=== PATIENT | female | born 1965 | race Caucasian/White ===

== ENCOUNTER 2022-04-27 15:22 | Outpatient (CLI) | payer OTHER, SELFPAY ==
--- NOTE | 2022-04-27 15:30 | ECG_ITS ---
Measurements Intervals [place] Rate: 84 P: 63 CO: 158 QRS: 27 QRSD: 81 T: 47 QT: 352 QTc: 417 Interpretive Statements SINUS RHYTHM LOW QRS VOLTAGE IN PRECORDIAL LEADS BASELINE ARTIFACT- I, II, III, AVR, AVL, AVF BORDERLINE ECG NO PREVIOUS ECG AVAILABLE FOR COMPARISON Electronically Signed On 04-27-2022 15:44:11 [employer] by Dario Mendoza D.O.
[2022-04-27 16:47] LABS: INR 2.2; Partial Thromboplastin Time 35.6 SECONDS (22.3-36.8); Prothrombin Time 23.5 Seconds (11.1-14.7)
== END 2022-04-27 15:23 | disposition home or self-care (01) ==
LOC: ANHSURGERY 15:28
PROVIDERS: Anesthesiology; Visit Provider Urology
DX: Z01.812 Encounter for preprocedural laboratory examination (principal); Z01.810 Encounter for preprocedural cardiovascular examination; N39.3 Stress incontinence (female) (male); Z79.01 Long term (current) use of anticoagulants; Z87.891 Personal history of nicotine dependence
CPT/HCPCS: 36415; 85610; 85730; 87086; 87088; 93005

== ENCOUNTER 2022-05-07 00:54 | Day surgery (SDC) | payer OTHER, SELFPAY ==
[2022-04-26 11:08] VITALS: BMI 44.9
--- NOTE | 2022-04-26 11:13 | PC.NURSE ---
Report to the Outpatient Waiting Room, entrance under the green pavilion located off [facility], at time 6:15 on date 05/07/22. Planned Procedure Time: 8:15. Time changes happen often and if your time is changed the preop area will call you the afternoon before. - You and your visitor will be asked to self-screen and do not enter if you have any COVID symptoms. - Only one visitor is requested with a max of two and NO children visitors are allowed at this time. - The patient visitor may be requested to leave or wait in car when not with patient due to distancing restrictions. - A mask is optional within the hospital at this time. Patients may have clear liquids (water, carbonated beverages, clear teas, apple juice) until 3 hours prior to surgery with a maximum of 20 ounces. - No food from midnight until time of surgery Take the following medications with a SIP of water the morning of surgery: EFFEXOR DO NOT STOP ANY OF YOUR OTHER PRESCRIPTION MEDICATIONS PRIOR TO SURGERY?EXCEPT THE FOLLOWING Medications to discontinue per physician: COUMADIN Date to take last dose: PER DR. FRAIRE Please no make-up, nail khmer, hairspray, perfume, deodorant, or body powder the day of surgery. No jewelry (including any body piercings) or valuables the day of surgery, leave them at home. Please take a shower or bath the night before, or the morning of, surgery with an antibacterial soap. Wear comfortable, loose fitting clothing. - Jewelry must be removed prior to entering the operating room. Rings and piercings that are not removed may be cut off. - The hospital will not accept responsibility for valuables. - Please leave all valuables, including medications, at home the day of surgery. If you are going home after surgery, a licensed regional driver must drive you home. - NO public transportation without another adult if you receive anesthesia. - We recommend that an adult stay with you for 24 hours following discharge. - We also recommend that you do not drive, make important decision, drink alcoholic beverages, or take any drugs that were not prescribed by your health care provider for at least 24 hours after your discharge time. Follow any additional instructions given to you from your surgeon. If you or anyone in your household have experienced Covid symptoms in the past week, please notify your surgeon or the nurse liaison at the phone number below for possible testing. Telephone instructions given to PT - FERNANDO HERNANDES and asked if any additional questions and then verbalized understanding. Patient advised to call surgeon office or pre surgery nurse liaison [phone] if any additional questions.
--- NOTE | 2022-05-06 09:34 | PM.IMHP ---
H&P: HPI History of Present Illness Date/Time: 05/06/22 09:34 Chief Complaint: stress incontinence Narrative: 57-year-old with symptomatic stress incontinence who desires treatment. Will pursue a urethral sling. She has overactive bladder treated with anticholinergics. She has an asymptomatic rectocele which does not require intervention Review of Systems Review of Systems: All systems reviewed & are unremarkable except as noted in HPI and below PMFSH Social History Social History Smoking packs per day: 1 Smoking cigarettes per day: 20.0 Years smoked: 20 Smoking pack-years: 20.00 Smoking status: Former smoker Tobacco type: cigarettes Smoking end date: 03/28/07 Alcohol intake: never Substance use: never Substance use type: does not use Living arrangements: with family Spiritual care concerns: No Meds Home Medications and Allergies Home Medications Medication Instructions Recorded Confirmed Type lisinopril 2.5 mg tablet 2.5 mg PO DAILY 04/26/22 04/26/22 History loratadine 10 mg tablet (Claritin) 10 mg PO DAILY 04/26/22 04/26/22 History venlafaxine 25 mg tablet 25 mg PO DAILY 04/26/22 04/26/22 History warfarin 3 mg tablet 3 mg PO DAILY 04/26/22 04/26/22 History Allergies Allergy/AdvReac Type Severity Reaction Status Date / Time No Known Allergies Allergy Verified 04/26/22 11:04 Exam Narrative: urethral hypermobility noted rectocele to the introitus Assessment and Plan Assessment and plan (1) DARBY (stress urinary incontinence, female): Code(s): N39.3 - Stress incontinence (female) (male) Status: Acute Assessment and Plan: urethral sling. Understands risks of bleeding, infection, lack of efficacy, recurrent or persistent incontinence, need for ancillary procedures, urinary retention or mesh exposure. She agrees to proceed.
--- NOTE | 2022-05-07 06:46 | WPDANESEPPF ---
Anes - Initial Pre Proc Eval Procedure: Operation Date: 05/07/22 08:15 Proposed Procedures p Urethral Sling - Owen Barrett MD Date/Time: 05/07/22 06:46 Surgeon: Owen Barrett MD Pre Op Diagnosis: stress incont Patient Data Age: 57 Gender: F Height: 1.52 m Weight: 104.33 kg Allergies Allergy/AdvReac Type Severity Reaction Status Date / Time No Known Allergies Allergy Verified 04/26/22 11:04 Home Medications Medication Instructions Recorded Confirmed Type lisinopril 2.5 mg tablet 2.5 mg PO DAILY 04/26/22 04/26/22 History loratadine 10 mg tablet (Claritin) 10 mg PO DAILY 04/26/22 04/26/22 History venlafaxine 25 mg tablet 25 mg PO DAILY 04/26/22 04/26/22 History warfarin 3 mg tablet 3 mg PO DAILY 04/26/22 04/26/22 History Laboratory Tests 05/07/22 06:36 PT Pending INR Pending APTT Pending Patient hx anesthesia problems: none Family hx anesthesia problems: none Results Review: All pre-operative results and documents have been reviewed as part of the pre-operative evaluation. [facility], [facility] Past Medical History Medical History (Updated 05/07/22 @ 06:46 by Patricio Anaya MD) History of CVA (cerebrovascular accident) HTN (hypertension) Morbid obesity Surgical History Surgical History (Updated 05/07/22 @ 06:46 by Patricio Anaya MD) H/O exploratory laparotomy Social History Social History Smoking packs per day: 1 Smoking cigarettes per day: 20.0 Years smoked: 20 Smoking pack-years: 20.00 Smoking status: Former smoker Tobacco type: cigarettes Smoking end date: 03/28/07 Alcohol intake: never Substance use: never Substance use type: does not use Living arrangements: with family Spiritual care concerns: No Anes - Eval Final PreProcedure Day of Procedure 05/07/22 06:46 Patient weight: morbidly obese Heart: regular rate and rhythm Lungs: clear to auscultation Airway: Mallampati scale class II Neurological: alert and oriented Last oral intake: >/= 8 hours ASA classification: III Emergent: no Anesthetic plan: proceed Anesthesia type and monitoring: general GIVS and standard monitoring Results Review: All pre-operative results and documents have been reviewed as part of the pre-operative evaluation. Informed Consent: The patient's anesthetic plan and its attendant risks and benefits were discussed with the patient/family/POA. Questions were solicited and answers provided to the satisfaction of the patient/family/POA.
[2022-05-07 06:56] LABS: INR 1.2; Prothrombin Time 14.8 Seconds (11.1-14.7)
[2022-05-07 06:57] LABS: Partial Thromboplastin Time 29.7 SECONDS (22.3-36.8)
[2022-05-07 07:08] VITALS: BP 123/62; PULSE 73; RESP 14; TEMP 36.1; O2SAT 97
[2022-05-07] MEDS: LACTATED RINGERS 1,000 ML 30 ML IV CONT (07:11)
--- NOTE | 2022-05-07 07:12 | WPDHPUPDATE1 ---
History and Physical Update Update Date/Time: 05/07/22 07:12 History and Physical has been reviewed, including an updated exam of the patient. There are NO changes in the patient's condition. Risks, benefits, and alternatives have been discussed and questions answered. Patient agrees to proceed with procedure.
[2022-05-07] MEDS: ceFAZolin 2 GM/D5W 50 ML 2 GM/50 ML BAG IVPB (07:25)
[2022-05-07] MEDS: BUPIVACAINE/EPINEPHRINE 0.5% 10 ML VIAL 30 ML INFILTRATE (07:36)
[2022-05-07 08:00] VITALS: BP 123/79; PULSE 77; RESP 20; O2SAT 99
--- NOTE | 2022-05-07 08:01 | W.PM.PROC2 ---
Procedure Note - Detailed Date of Procedure 05/07/22 Pre-op Diagnosis stress incontinence Post-op Diagnosis Same Procedure Performed mid urethral sling cystoscopy Surgeon Owen Barrett MD Anesthesia General Indications This is a female with confirmed stress urinary incontinence. She desires surgical correction. She understands the risks of bleeding, infection, injury to the urinary tract, vaginal mesh extrusion, urinary tract mesh erosion, obstructive voiding requiring a secondary procedure, hip and leg pain, dyspareunia, inability to improve overactive bladder symptoms. She agrees to proceed. Description of Procedure She was correctly identified. Informed consent obtained. She was brought the operating room. She was given appropriate anesthesia. She was given appropriate perioperative antibiotics. A time-out performed. I marked out the site of the inner thigh incisions. I anesthetized the skin and made those incisions. I anesthetized the anterior vaginal wall over the mid urethra. I made a 1 cm incision. I dissected out laterally taking great care not to injure the refilled vaginal wall. I passed the helical trocars. First on the left. Then on the right. I did this from the thigh incision towards the vaginal incision. The sling was connected to the trocars and brought out through the thigh incision. I tensioned the sling appropriately. I cut and the plastic sheaths. I then closed the incision with 2 0 Vicryl. On cystoscopy there is no tumors or surgical artifact. There was no surgical artifact in the urethra. I cut the excess sling material. Close incisions with glue. She was awakened and transferred to the PACU in stable condition. Implants Urethral sling Estimated Blood Loss 20 Drains No Packing No Pathology None sent Complications No immediate complications Condition Stable Disposition PACU
[2022-05-07] MEDS: fentaNYL CITRATE INJ (*CRX) 100 MCG/2 ML VIAL 25 MCG IV PUSH ×2 (08:08→08:24)
[2022-05-07 08:15] VITALS: BP 109/77; PULSE 70; RESP 15; O2SAT 96
[2022-05-07 08:45] VITALS: BP 119/71; PULSE 77; RESP 16
== END 2022-05-07 09:30 | disposition home or self-care (01) ==
PROVIDERS: Anesthesiology; Visit Provider Urology
PROC: (CPT 57288; principal; 2022-05-07 08:15)
DX: N39.3 Stress incontinence (female) (male) (principal); N32.81 Overactive bladder; I10 Essential (primary) hypertension; Z86.73 Personal history of transient ischemic attack (TIA), and cerebral infarction without residual deficits; E66.01 Morbid (severe) obesity due to excess calories; Z68.42 Body mass index [BMI] 45.0-49.9, adult; Z87.891 Personal history of nicotine dependence; Z79.01 Long term (current) use of anticoagulants
CPT/HCPCS: 57288; 36415; 85610; 85730; 87086; 87088; 93005; C1771; J0690; J1100; J2250; J2405; J2704; J3010; J7030; J7120

== ENCOUNTER 2022-08-02 00:33 | Day surgery (SDC) | payer OTHER, SELFPAY ==
[2022-07-26 15:19] VITALS: BMI 47.6
--- NOTE | 2022-07-26 15:20 | PC.NURSE ---
Report to the Outpatient Waiting Room, entrance under the green pavilion located off [facility], at time 6:30 on date 08/02/22. Planned Procedure Time: 8:30. Time changes happen often and if your time is changed the preop area will call you the afternoon before. - You and your visitor will be asked to self-screen and do not enter if you have any COVID symptoms. - A mask is optional within the hospital at this time. Patients may have clear liquids (water, carbonated beverages, clear teas, apple juice) until 3 hours prior to surgery with a maximum of 20 ounces. - No food from midnight until time of surgery Take the following medications with a SIP of water the morning of surgery: VENLAFAXINE DO NOT STOP ANY OF YOUR OTHER PRESCRIPTION MEDICATIONS PRIOR TO SURGERY ?EXCEPT THE FOLLOWING Medications to discontinue per physician: WARFARIN Date to take last dose: 07/27/22 (PER DR. FRAIRE-PER PT) Please no make-up, nail latvian, hairspray, perfume, deodorant, or body powder the day of surgery. No jewelry (including any body piercings) or valuables the day of surgery, leave them at home. Please take a shower or bath the night before, or the morning of, surgery with an antibacterial soap. Wear comfortable, loose fitting clothing. - Jewelry must be removed prior to entering the operating room. Rings and piercings that are not removed may be cut off. - The hospital will not accept responsibility for valuables. - Please leave all valuables, including medications, at home the day of surgery. If you are going home after surgery, a licensed patrol driver must drive you home. - NO public transportation without another adult if you receive anesthesia. - We recommend that an adult stay with you for 24 hours following discharge. - We also recommend that you do not drive, make important decision, drink alcoholic beverages, or take any drugs that were not prescribed by your health care provider for at least 24 hours after your discharge time. Follow any additional instructions given to you from your surgeon. If you or anyone in your household have experienced Covid symptoms in the past week, please notify your surgeon or the nurse liaison at the phone number below for possible testing. Telephone instructions given to PT - FERNANDO HERNANDES and asked if any additional questions and then verbalized understanding. Patient advised to call surgeon office or pre surgery nurse liaison [phone] if any additional questions.
--- NOTE | 2022-07-31 16:38 | PM.IMHP ---
H&P: HPI History of Present Illness Date/Time: 07/31/22 16:38 Chief Complaint: exposed sling Narrative: history of exposed sling, notes bleeding. Review of Systems Review of Systems: All systems reviewed & are unremarkable except as noted in HPI and below PMFSH Past Medical History Medical History History of CVA (cerebrovascular accident) HTN (hypertension) Morbid obesity Surgical History Surgical History H/O exploratory laparotomy Social History Social History Smoking packs per day: 1 Smoking cigarettes per day: 20.0 Years smoked: 20 Smoking pack-years: 20.00 Smoking status: Former smoker Tobacco type: cigarettes Smoking end date: 03/28/07 Alcohol intake: never Substance use: never Substance use type: does not use Living arrangements: with family Gender identity (if verbalized by the patient): Female Sexual Orientation (if Verbalized by the Patient): Straight or Heterosexual Spiritual care concerns: No Meds Home Medications and Allergies Home Medications Medication Instructions Recorded Confirmed Type lisinopril 2.5 mg tablet 2.5 mg PO DAILY 04/26/22 07/26/22 History venlafaxine 25 mg tablet 25 mg PO DAILY 04/26/22 07/26/22 History warfarin 3 mg tablet 3 mg PO DAILY 04/26/22 07/26/22 History Allergies Allergy/AdvReac Type Severity Reaction Status Date / Time No Known Allergies Allergy Verified 07/26/22 15:18 Exam Narrative: Obese no acute distress area of exposure present Assessment and Plan Assessment and plan (1) Exposure of vaginal mesh through vaginal wall: Code(s): T83.721A - Exposure of implanted vaginal mesh into vagina, initial encounter Status: Acute (2) Intrinsic sphincter deficiency (ISD): Code(s): N36.42 - Intrinsic sphincter deficiency (ISD) Status: Acute Plan will excise mesh exposure. Concomitant bulking agent. Understands the risks of bleeding, infection, inability to resolve the issue, recurrent or persistent incontinence, obstructive voiding. Agrees to proceed
[2022-08-02] VITALS (7 sets, daily range): BP systolic 106–132; BP diastolic 58–77; PULSE 69–76; RESP 15–16; TEMP 36.4; O2SAT 95–100
[2022-08-02] MEDS: LACTATED RINGERS 1,000 ML 30 ML IV CONT (07:04)
--- NOTE | 2022-08-02 07:16 | WPDHPUPDATE1 ---
History and Physical Update Update Date/Time: 08/02/22 07:16 History and Physical has been reviewed, including an updated exam of the patient. There are NO changes in the patient's condition. Risks, benefits, and alternatives have been discussed and questions answered. Patient agrees to proceed with procedure.
[2022-08-02 07:27] LABS: INR 1.1; Prothrombin Time 14.4 Seconds (11.1-14.7)
[2022-08-02 07:28] LABS: Partial Thromboplastin Time 27.1 SECONDS (22.3-36.8)
--- NOTE | 2022-08-02 07:54 | WPDANESEPPF ---
Anes - Initial Pre Proc Eval Procedure: Operation Date: 08/02/22 08:30 Proposed Procedures p Cystoscopy with Injection of Bulking Agent, Excision of Exposed Vaginal Mesh - Owen Barrett MD Date/Time: 08/02/22 07:54 Surgeon: Owen Barrett MD Pre Op Diagnosis: Erosion of Implanted Vag Mesh Patient Data Age: 57 Gender: F Height: 1.52 m Weight: 107.2 kg Last Vital Signs Temp 36.4 C L 08/02/22 07:09 Pulse 74 08/02/22 07:09 Resp 16 08/02/22 07:09 BP 132/63 08/02/22 07:09 Pulse Ox 96 08/02/22 07:09 O2 Del Method Room Air 08/02/22 07:09 Allergies Allergy/AdvReac Type Severity Reaction Status Date / Time No Known Allergies Allergy Verified 08/02/22 07:08 Home Medications Medication Instructions Recorded Confirmed Type lisinopril 2.5 mg tablet 2.5 mg PO DAILY 04/26/22 08/02/22 History venlafaxine 25 mg tablet 25 mg PO DAILY 04/26/22 08/02/22 History warfarin 3 mg tablet 3 mg PO DAILY 04/26/22 08/02/22 History phenazopyridine 200 mg tablet 200 mg PO TID PRN pain 6 doses #30 08/02/22 Rx (Pyridium) tabs Laboratory Tests 08/02/22 06:56 PT 14.4 Seconds (11.1-14.7) INR 1.1 APTT 27.1 SECONDS (22.3-36.8) Patient hx anesthesia problems: none Family hx anesthesia problems: none Results Review: All pre-operative results and documents have been reviewed as part of the pre-operative evaluation. [facility] Past Medical History Medical History History of CVA (cerebrovascular accident) HTN (hypertension) Morbid obesity Surgical History Surgical History H/O exploratory laparotomy Social History Social History Smoking packs per day: 1 Smoking cigarettes per day: 20.0 Years smoked: 20 Smoking pack-years: 20.00 Smoking status: Former smoker Tobacco type: cigarettes Smoking end date: 03/28/07 Alcohol intake: never Substance use: never Substance use type: does not use Living arrangements: with family Gender identity (if verbalized by the patient): Female Sexual Orientation (if Verbalized by the Patient): Straight or Heterosexual Spiritual care concerns: No Anes - Eval Final PreProcedure Day of Procedure 08/02/22 07:54 Patient weight: morbidly obese Heart: regular rate and rhythm Lungs: clear to auscultation Airway: Mallampati scale class II Neurological: alert and oriented Last oral intake: >/= 8 hours ASA classification: III Emergent: no Anesthetic plan: proceed Anesthesia type and monitoring: general GIVS and standard monitoring Results Review: All pre-operative results and documents have been reviewed as part of the pre-operative evaluation. Informed Consent: The patient's anesthetic plan and its attendant risks and benefits were discussed with the patient/family/POA. Questions were solicited and answers provided to the satisfaction of the patient/family/POA.
[2022-08-02] MEDS: ceFAZolin 2 GM/D5W 50 ML 2 GM/50 ML BAG IVPB (08:45)
[2022-08-02] MEDS: fentaNYL CITRATE INJ (*CRX) 100 MCG/2 ML VIAL 25 MCG IV PUSH ×4 (09:29→09:56)
[2022-08-02] MEDS: oxyCODONE HCL (*CRX) 5 MG TAB IR PO (10:25)
--- NOTE | 2022-08-02 11:17 | P.OP_ITS ---
Procedure Note - Detailed Date of Procedure 08/02/22 Pre-op Diagnosis Erosion of Implanted Vag Mesh intrinsic Sphincter deficiency Post-op Diagnosis Same Procedure Performed excision of exposed vaginal mesh cystoscopy with suburethral implant of bulking material Surgeon Owen Barrett MD Anesthesia General Description of Procedure this is a woman status post urethral sling. She has cure of her stress incontinence. She has a small area of mesh erosion. Her feels intercourse. There was bleeding on occasion. She would like it excised. I will plan for a concomitant bulking due to the risk of recurrent stress incontinence she was correctly identified. Informed consent obtained. She from the operating room. She was given general anesthesia. She was placed in dorsal lithotomy position. She was prepped draped sterile fashion. Time-out performed. I placed Alexander catheter. I placed a [place] retractor. An area of mesh exposure was seen at the midline of mid urethra. exposure was somewhat difficult due to her body habitus. A mosquito clamp was placed behind the mesh exposure. It was divided midline. I dissected out laterally removing a segment of the sling to sent to pathology for analysis. I then closed the defect with interrupted 2-0 Vicryl suture. There was good hemostasis. I then turned my attention towards the bulking agent. Cystoscopy was done and was normal. There was no foreign body or injury to the bladder or urethra. Ureteral orifices were normal. I chose a spot in the urethra 2 cm distal to the bladder neck. I injected my bulking agent circumferentially. I used 1-1/2 syringe. There was excellent bulking effect. Her bladder is partially full. She was awakened transferred to PACU in stable condition Estimated Blood Loss -5.0 Packing No Pathology Yes Complications No immediate complications Condition Stable
== END 2022-08-02 10:59 | disposition home or self-care (01) ==
PROVIDERS: Visit Provider Urology
PROC: 3E0K8GC Introduction of Other Therapeutic Substance into Genitourinary Tract, Via Natural or Artificial Opening Endoscopic (ICD-10-PCS; CPT 57295; principal; 2022-08-02 08:30)
DX: T83.721A Exposure of implanted vaginal mesh into vagina, initial encounter (principal); Y83.8 Other surgical procedures as the cause of abnormal reaction of the patient, or of later complication, without mention of misadventure at the time of the procedure; N36.42 Intrinsic sphincter deficiency (ISD); I10 Essential (primary) hypertension; Z86.73 Personal history of transient ischemic attack (TIA), and cerebral infarction without residual deficits; E66.01 Morbid (severe) obesity due to excess calories; Z68.42 Body mass index [BMI] 45.0-49.9, adult; Z87.891 Personal history of nicotine dependence; Z79.01 Long term (current) use of anticoagulants
CPT/HCPCS: 57295; 51715; 36415; 85610; 85730; 88300; A9270; J0690; J1100; J2250; J2405; J2704; J3010; J7030; J7120; L8606